=== PATIENT | female | born 1950 | race Caucasian/White ===

== ENCOUNTER 2017-12-16 05:06 | Outpatient (CLI) | payer MEDICARE ==
[~2017-12-16 05:06] MED LIST: CLOP75TA15 PO; EFF25T PO; EZET10TA13 PO; FLAX SEED OIL; INSU100V11 SQ; LANTUS SQ; ROSU10TA PO; SLO NIACIN
== END 2017-12-16 23:59 | disposition home or self-care (01) ==
LOC: DIABETIC 05:06
PROVIDERS: ATTEND Specialist
DX: E11.65 Type 2 diabetes mellitus with hyperglycemia (principal); I10 Essential (primary) hypertension
CPT/HCPCS: G0108

== ENCOUNTER 2018-02-26 02:51 | Emergency (ER) | payer MEDICARE ==
[~2018-02-26] VITALS: Ht 165.1 cm; Wt 89.0 kg
[2018-02-26] MEDS ORDERED: normal saline 1000ML IV soln IVB ONE (03:05)
[2018-02-26] MEDS ORDERED: morphine 4 MG/ML inj SYRINge IV ONE (03:05)
[2018-02-26 03:18] LABS: BASOPHILS % (AUTO) 0.7 % (0-1); EOSINOPHILS # (AUTO) 0.2 X10'3 (0-0.9); EOSINOPHILS % (AUTO) 3.7 % (0-6); HEMATOCRIT 42.4 % (35.0-45.0); HEMOGLOBIN 14.7 g/dl (12.0-16.0); LYMPHOCYTES # (AUTO) 1.6 X10'3 (1.1-4.8); LYMPHOCYTES % (AUTO) 27.2 % (21-51); MEAN CORPUSCULAR HEMOGLOBIN 28.3 PG (27.0-31.0); MEAN CORPUSCULAR HGB CONC 34.7 % (33.0-36.5); MEAN CORPUSCULAR VOLUME 81.6 FL (78-98); MEAN PLATELET VOLUME 7.5 FL (7.4-10.4); MONOCYTES # (AUTO) 0.5 X10'3 (0-0.9); NEUTROPHILS # (AUTO) 3.6 X10'3 (1.8-7.7); NEUTROPHILS % (AUTO) 60.4 % (42-75); PLATELET COUNT 223 X10'3 (140-440); RED CELL DISTRIBUTION WIDTH 14.1 % (11.5-14.5)
[2018-02-26 03:29] LABS: INR 0.9 INR; PARTIAL THROMBOPLASTIN TIME 25 SECONDS (22-32); PROTHROMBIN TIME 9.5 SECONDS (9.0-12.0)
[2018-02-26 03:44] LABS: ALANINE AMINOTRANSFERASE 21 U/L (12-78); ALBUMIN/GLOBULIN RATIO 0.7 (1.1-1.5); ALKALINE PHOSPHATASE 117 IU/L (46-116); ANION GAP 12 (8-16); ASPARTATE AMINO TRANSFERASE 12 U/L (10-37); BILIRUBIN,TOTAL 0.3 MG/DL (0.1-1.0); BLOOD UREA NITROGEN 15 MG/DL (7-18); BUN/CREATININE RATIO 16.5 (6.6-38.0); CALCIUM 9.2 MG/DL (8.5-10.1); CHLORIDE 99 MMOL/L (99-107); CREATININE 0.91 MG/DL (0.40-0.90); MAGNESIUM 1.6 MG/DL (1.5-2.4); POTASSIUM 3.7 MMOL/L (3.5-5.1); SODIUM 138 MMOL/L (135-145); TOTAL CARBON DIOXIDE 27.5 MMOL/L (24-32); TOTAL PROTEIN 7.2 G/DL (6.4-8.2); eGFR 61 ML/MIN
[2018-02-26 03:50] LABS: ETHANOL < 0.010 GM/DL (0.0-0.010)
[2018-02-26 03:51] LABS: GLUCOSE 460 MG/DL (70-104)
[2018-02-26] MEDS ORDERED: insulin regular, human 10 units/0.1 ml syringe SQ ONE (03:55)
[2018-02-26 04:20] VITALS: BP 161/90
[2018-02-26 04:23] LABS: CLARITY,URINE SLIGHTLY CLOUDY (Clear); COLOR,URINE YELLOW (Yellow); GLUCOSE, URINE >=1000 mg/dl (Neg); KETONES,URINE TRACE mg/dl (Neg); LEUKOCYTE ESTERASE ,URINE NEGATIVE (Neg); NITRITES, URINE NEGATIVE (Neg); OCCULT BLOOD,URINE TRACE-INTACT (Neg); PROTEIN,URINE 100 mg/dl (Neg); UROBILINOGEN,URINE 0.2 E.U/dL (0.2-1.0)
[2018-02-26 04:30] LABS: UA COLLECTION TYPE CLN CATCH MIDSTREAM
[2018-02-26 04:34] LABS: BACTERIA,URINE 1+ /HPF (Neg); RBC,URINE 0-2 /HPF (0-2); SQUAMOUS EPITHELIAL CELL,UR FEW /LPF (FEW)
[2018-02-26] MEDS ORDERED: nitrofuran/nitrofuran macrocrysal 100 MG capsule PO ONE (04:45)
[2018-02-26] MEDS ORDERED: NITR100C6 PO (04:46)
== END 2018-02-26 05:59 | disposition home or self-care (01) ==
LOC: ER 02:52
DX: S52.501A Unspecified fracture of the lower end of right radius, initial encounter for closed fracture (principal); S52.601A Unspecified fracture of lower end of right ulna, initial encounter for closed fracture; E11.65 Type 2 diabetes mellitus with hyperglycemia; N30.00 Acute cystitis without hematuria; I10 Essential (primary) hypertension; Z86.73 Personal history of transient ischemic attack (TIA), and cerebral infarction without residual deficits; Z88.1 Allergy status to other antibiotic agents; Z88.0 Allergy status to penicillin; Z91.011 Allergy to milk products; Z79.02 Long term (current) use of antithrombotics/antiplatelets; Z91.09 Other allergy status, other than to drugs and biological substances; Z79.4 Long term (current) use of insulin; Z79.899 Other long term (current) drug therapy; Z56.0 Unemployment, unspecified; W19.XXXA Unspecified fall, initial encounter; Y93.89 Activity, other specified; Y92.090 Kitchen in other non-institutional residence as the place of occurrence of the external cause; Y99.8 Other external cause status
CPT/HCPCS: 29125; 36415; 71045; 73100; 80053; 80320; 81001; 82948; 83735; 84443; 85025; 85610; 85730; 87088; 93005; 96361; 96372; 96374; 99285; J1815; J2270; J7030

== ENCOUNTER 2018-12-31 15:41 | Inpatient (IN) | payer MEDICARE, OTHER ==
[~2018-12-31] VITALS: Ht 170.2 cm; Wt 88.6 kg
[~2018-12-31 15:41] MED LIST changes: +LANTUS SOLOSTAR 100 UNIT/ML; +LISINOPRIL-HCTZ 20-12.5 MG TAB; +METFORMIN HCL ER 500 MG TABLET; +METOPROLOL SUCC ER 25 MG TAB; +NITR100C6 PO; +VENLAFAXINE HCL ER 150 MG CAP
[2018-12-31 16:20] LABS: BASOPHILS % (AUTO) 0.8 % (0-1); EOSINOPHILS # (AUTO) 0.2 X10'3 (0-0.9); EOSINOPHILS % (AUTO) 2.9 % (0-6); HEMATOCRIT 44.8 % (35.0-45.0); HEMOGLOBIN 15.3 g/dl (12.0-16.0); LYMPHOCYTES # (AUTO) 1.1 X10'3 (1.1-4.8); LYMPHOCYTES % (AUTO) 18.8 % (21-51); MEAN CORPUSCULAR HEMOGLOBIN 27.6 PG (27.0-31.0); MEAN CORPUSCULAR HGB CONC 34.2 g/dL (33.0-36.5); MEAN CORPUSCULAR VOLUME 80.7 FL (78-98); MEAN PLATELET VOLUME 7.3 FL (7.4-10.4); MONOCYTES # (AUTO) 0.4 X10'3 (0-0.9); MONOCYTES % (AUTO) 6.7 % (2-12); NEUTROPHILS # (AUTO) 4.2 X10'3 (1.8-7.7); NEUTROPHILS % (AUTO) 70.8 % (42-75); PLATELET COUNT 254 X10'3 (140-440); RED BLOOD COUNT 5.55 X10'6 (4.20-5.60); RED CELL DISTRIBUTION WIDTH 14.3 % (11.5-14.5); WHITE BLOOD COUNT 5.9 X10'3 (4.5-11.0)
[2018-12-31 16:34] LABS: ALANINE AMINOTRANSFERASE 18 U/L (12-78); ALBUMIN 3.4 G/DL (3.4-5.0); ALBUMIN/GLOBULIN RATIO 0.8 (1.1-1.5); ALKALINE PHOSPHATASE 107 IU/L (46-116); ANION GAP 12 (8-16); ASPARTATE AMINO TRANSFERASE 13 U/L (10-37); BILIRUBIN,TOTAL 0.7 MG/DL (0.1-1.0); BLOOD UREA NITROGEN 10 MG/DL (7-18); BUN/CREATININE RATIO 12.2 (6.6-38.0); CALCIUM 9.3 MG/DL (8.5-10.1); CHLORIDE 98 MMOL/L (99-107); CREATININE 0.82 MG/DL (0.40-0.90); GLUCOSE 355 MG/DL (70-104); POTASSIUM 3.3 MMOL/L (3.5-5.1); SODIUM 138 MMOL/L (135-145); TOTAL CARBON DIOXIDE 28.4 MMOL/L (24-32); TOTAL PROTEIN 7.8 G/DL (6.4-8.2); eGFR 69 ML/MIN
[2018-12-31 16:35] LABS: TROPONIN I < 0.04 NG/ML (0.0-0.05)
[2018-12-31 16:47] LABS: ETHANOL < 0.010 GM/DL (0.0-0.010)
[2018-12-31 16:55] LABS: PARTIAL THROMBOPLASTIN TIME 33 SECONDS (22-32); PROTHROMBIN TIME 10.3 SECONDS (9.0-12.0)
[2018-12-31 22:37] LABS: CLARITY,URINE SLIGHTLY CLOUDY (Clear); COLOR,URINE YELLOW (Yellow); GLUCOSE, URINE >=1000 mg/dl (Neg); KETONES,URINE 15 mg/dl (Neg); LEUKOCYTE ESTERASE ,URINE NEGATIVE (Neg); NITRITES, URINE NEGATIVE (Neg); OCCULT BLOOD,URINE MODERATE (Neg); PROTEIN,URINE >=300 mg/dl (Neg); UROBILINOGEN,URINE 0.2 E.U/dL (0.2-1.0)
[2018-12-31 22:38] LABS: UA COLLECTION TYPE STRAIGHT CATH
[2018-12-31 22:43] LABS: HYALINE CASTS 0-3 /LPF (NEGATIVE); SQUAMOUS EPITHELIAL CELL,UR MODERATE /LPF (FEW)
[2018-12-31 22:44] LABS: BACTERIA,URINE 1+ /HPF (Neg); FINE GRANULAR CAST 0-3 /LPF (NEGATIVE); MUCUS STRANDS MODERATE /LPF (Neg); RBC,URINE 0-2 /HPF (0-2)
[2018-12-31 22:45] LABS: URINE AMPHETAMINE SCREEN NEGATIVE (Neg); URINE BARBITUATE SCREEN NEGATIVE (Neg); URINE BENZODIAZEPINES SCREEN NEGATIVE (Neg); URINE CANNABINOID SCREEN NEGATIVE (Neg); URINE COCAINE SCREEN NEGATIVE (Neg); URINE METHADONE SCREEN NEGATIVE (Neg); URINE OPIATE SCREEN NEGATIVE (Neg); URINE PHENCYCLIDINE SCREEN NEGATIVE (Neg)
--- NOTE | 2018-12-31 23:20 | NUR ---
PT WAS GAIT TESTED BY ANOTHER RN - PT USED WALKED AND HAD DIFFICULTY AMBULATING AND WAS LISTING TO THE LEFT. PT SAFELY PLACED BACK IN BED. MD WILL BE NOTIFIED OF FINDINGS.
[2018-12-31] MEDS ORDERED: magnesium hydroxide 30ml (MOM) UD suspension PO PRN (23:55)
[2018-12-31] MEDS ORDERED: morphine 4 MG/ML inj SYRINge IV PRN ×2 (23:55)
[2018-12-31] MEDS ORDERED: HYDROcodone/acetaminophen 5mg/325mg tablet PO PRN (23:55)
[2018-12-31] MEDS ORDERED: acetaminophen 325mg tablet PO PRN (23:55)
[2018-12-31] MEDS ORDERED: mag hydrox/Alum hydrox/simeth 30ml oral suspension PO PRN (23:55)
[2018-12-31] MEDS ORDERED: ondansetron/PF 4mg/2ml inj IV PRN (23:55)
[2019-01-01] MEDS ORDERED: METF500T PO (00:12)
[2019-01-01] MEDS ORDERED: INSU100V9 SQ (00:12)
[2019-01-01] MEDS ORDERED: CLOP75TA15 PO (00:12)
[2019-01-01] MEDS ORDERED: METO-395 PO (00:12)
[2019-01-01] MEDS ORDERED: INSU100C10 SQ (00:12)
[2019-01-01] MEDS ORDERED: LISI1TAB11 PO (00:12)
--- NOTE | 2019-01-01 00:21 | NUR ---
hospitalist at bedside
[2019-01-01] MEDS ORDERED: dextrose ORAL solution 15 GM/59 ML bottle PO PRN ×2 (00:30)
[2019-01-01] MEDS ORDERED: glucagon, human recombinant 1mg kit SUBCUT PRN (00:30)
[2019-01-01] MEDS ORDERED: dextrose 50%-water 50ml dispensing syringe IV PRN ×2 (00:30)
[2019-01-01] MEDS ORDERED: MESSAGE TO PHARMACY PO ONE (00:30)
--- NOTE | 2019-01-01 00:34 | NUR ---
pt moved onto hospital bed. She is given call light. no needs at this time. warm blanket given and lights dimmed.
[2019-01-01 01:24] LABS: HEMOGLOBIN A1C 9.8 % (4.5-6.2)
--- NOTE | 2019-01-01 01:27 | NUR ---
Got pt up to BS commode with walker and then back to bed, she did urinate. Pitcher of water filled atnd at [facility] BS. Call light at BS.
--- NOTE | 2019-01-01 03:06 | NUR ---
PT RESTING AT THIS TIME. CALL LIGHT IN REACH. WILL CONTINUE TO MONITOR.
--- NOTE | 2019-01-01 04:04 | NUR ---
pt weight control engineer light - assisted pt to BSC - she is then placed back on bed but desires to dangle her legs for a bit. pt sitting on edge of bed and has call light in reach to notify RN when she wants help getting placed all the way back in bed.
[2019-01-01] MEDS: clopidogrel 75mg tablet PO SCH (08:49)
[2019-01-01] MEDS: ezetimibe 10mg tablet PO SCH (08:49)
[2019-01-01] MEDS: metoprolol succinate 25mg (24-HOUR) SR. Tablet PO SCH (08:50)
[2019-01-01] MEDS: venlafaxine XR 75mg capsule (Q24H) PO SCH (08:50)
[2019-01-01] MEDS: lisinopril 20mg tablet PO SCH (08:50)
[2019-01-01] MEDS: HYDROchlorothiazide 12.5mg capsule PO SCH (08:50)
[2019-01-01] MEDS: insulin Lispro (HumaLOG) vial - multi-dose SQ SCH ×4 (08:57→21:25)
--- NOTE | 2019-01-01 18:05 | NUR ---
ASSUMED CARE, RECEIVED REPORT FROM [facility] AT BEDSIDE, GIVING REPORT TO ON COMING NURSE KATIE Lawton
[2019-01-01] MEDS ORDERED: potassium Cl 40MEQ/NS 500ml 500 ML IV PRN ×2 (19:50)
[2019-01-01] MEDS ORDERED: magnesium 2GM in 50ml NS 50 ML IV PRN (19:50)
[2019-01-01] MEDS ORDERED: magnesium Cl slow-release 64mg tablet PO PRN (19:50)
[2019-01-01] MEDS ORDERED: potassium Cl 20 mEq SR tablet PO PRN (19:50)
[2019-01-01] MEDS ORDERED: magnesium 4gm in 100ml NS 100 ML IV PRN (19:50)
--- NOTE | 2019-01-01 20:31 | NUR ---
Spoke with Dr. Macario regarding another anticoagulant for stroke protocol. He said that plavix which patient is on should be fine and for tomorrow daytime Hosp. to follow up.
[2019-01-01] MEDS: insulin glargine (Lantus) pen - multi-dose SQ SCH (21:24)
[2019-01-01 22:00] VITALS: BP 164/78
[2019-01-02 02:00] VITALS: BP 147/75
[2019-01-02 06:00] VITALS: BP 169/74
--- NOTE | 2019-01-02 06:10 | NUR ---
Patient in room [facility]TH[facility] 4021. I have received report from Noemy Lawton and had the opportunity to ask questions and assume patient care.
--- NOTE | 2019-01-02 06:18 | NUR ---
Problems reprioritized. Patient report given, questions answered & plan of care reviewed with CASSANDRA Spaulding.
[2019-01-02 06:59] LABS: CHOL/HDL RATIO 6.2 (0.00-4.99); CHOLESTEROL 198 MG/DL (0-200); HDL CHOLESTEROL 32 MG/DL (35-60); LDL CHOLESTEROL 135 MG/DL (50-100); MAGNESIUM 1.5 MG/DL (1.5-2.4); POTASSIUM 3.4 MMOL/L (3.5-5.1); TRIGLYCERIDES 126 MG/DL (20-135)
[2019-01-02 08:00] VITALS: BP_SYST 141; BP_SYST 144; BP_SYST 157; BP_DIAS 80; BP_DIAS 81; BP_DIAS 82
[2019-01-02] MEDS: venlafaxine XR 75mg capsule (Q24H) PO SCH (08:12)
[2019-01-02] MEDS: HYDROchlorothiazide 12.5mg capsule PO SCH (08:13)
[2019-01-02] MEDS: lisinopril 20mg tablet PO SCH (08:14)
[2019-01-02] MEDS: clopidogrel 75mg tablet PO SCH (08:14)
[2019-01-02] MEDS: metoprolol succinate 25mg (24-HOUR) SR. Tablet PO SCH (08:15)
[2019-01-02] MEDS: ezetimibe 10mg tablet PO SCH (08:17)
[2019-01-02] MEDS: insulin Lispro (HumaLOG) vial - multi-dose SQ SCH ×3 (08:52→19:13)
[2019-01-02] MEDS: potassium Cl 20 mEq SR tablet PO PRN ×3 (09:40→17:50)
--- NOTE | 2019-01-02 10:16 | NUR ---
Initial: Pt admit with recurrent falls. Pt with T2DM with A1c 9.8. Pt currently documented as A/O x 1, DM ed not appropriate at this time, will f/u and provide DM ed once pt more alert and oriented. Pt currently on CHO controlled diet with documented PO intake 100% meeting nutrient needs. [facility] 01/01. Will continue to follow. Recommendations: 1) Continue with CHO controlled diet 2) DM ed prior to d/c 3) Wt per rx Addendum: 01/02/19 at [address] Amended: Links added.
--- NOTE | 2019-01-02 15:21 | NUR ---
DM f/u: Pt seen at bedside with friend present. Pt states she checks her BG 3-4 times a day with fluctuating results, patient's friend states pt's BG are all over the place, sometimes in the 390s. Pt states endo reports to her that she's insulin resistant. Pt given written and verbal DM ed with referral to outpatient DM class. Will remain available. Initial: Pt admit with recurrent falls. Pt with T2DM with A1c 9.8. Pt currently documented as A/O x 1, DM ed not appropriate at this time, will f/u and provide DM ed once pt more alert and oriented. Pt currently on CHO controlled diet with documented PO intake 100% meeting nutrient needs. [facility] 01/01. Will continue to follow. Recommendations: 1) Continue with CHO controlled diet 2) DM ed prior to d/c 3) Wt per rx Addendum: 01/02/19 at [address] Amended: Links added.
[2019-01-02 18:00] VITALS: BP 152/83
--- NOTE | 2019-01-02 18:23 | NUR ---
Problems reprioritized. Patient report given, questions answered & plan of care reviewed with Noemy Lawton
--- NOTE | 2019-01-02 18:30 | NUR ---
Patient in room [facility]TH[facility] 4021. I have received report from CASSANDRA Spaulding and had the opportunity to ask questions and assume patient care.
[2019-01-02] MEDS: insulin glargine (Lantus) pen - multi-dose SQ SCH (21:21)
[2019-01-02 22:00] VITALS: BP 136/77
[2019-01-03 06:00] VITALS: BP 151/77
--- NOTE | 2019-01-03 06:09 | NUR ---
Problems reprioritized. Patient report given, questions answered & plan of care reviewed with CASSANDRA Spaulding.
--- NOTE | 2019-01-03 06:10 | NUR ---
Patient in room [facility]TH[facility] 4021. I have received report from Noemy Lawton and had the opportunity to ask questions and assume patient care.
[2019-01-03] MEDS: venlafaxine XR 75mg capsule (Q24H) PO SCH (07:54)
[2019-01-03] MEDS: lisinopril 20mg tablet PO SCH (07:55)
[2019-01-03] MEDS: HYDROchlorothiazide 12.5mg capsule PO SCH (07:55)
[2019-01-03] MEDS: ezetimibe 10mg tablet PO SCH (07:56)
[2019-01-03] MEDS: clopidogrel 75mg tablet PO SCH (07:56)
[2019-01-03] MEDS: metoprolol succinate 25mg (24-HOUR) SR. Tablet PO SCH (07:56)
[2019-01-03 08:00] VITALS: BP_SYST 128; BP_SYST 141; BP_SYST 96; BP_DIAS 55; BP_DIAS 67; BP_DIAS 69
[2019-01-03] MEDS ORDERED: atorvastatin 20mg tablet PO SCH (08:00)
[2019-01-03] MEDS ORDERED: amLODIPine 5mg tablet PO SCH (08:00)
[2019-01-03] MEDS: insulin Lispro (HumaLOG) vial - multi-dose SQ SCH ×2 (09:03→13:32)
[2019-01-03 10:00] VITALS: BP 141/69
[2019-01-03 11:43] LABS: ANION GAP 11 (8-16); BASOPHILS # (AUTO) 0.1 X10'3 (0-0.2); BASOPHILS % (AUTO) 0.7 % (0-1); BLOOD UREA NITROGEN 19 MG/DL (7-18); BUN/CREATININE RATIO 21.8 (6.6-38.0); CHLORIDE 96 MMOL/L (99-107); CREATININE 0.87 MG/DL (0.40-0.90); EOSINOPHILS # (AUTO) 0.2 X10'3 (0-0.9); EOSINOPHILS % (AUTO) 2.2 % (0-6); GLUCOSE 318 MG/DL (70-104); HEMATOCRIT 41.3 % (35.0-45.0); LYMPHOCYTES # (AUTO) 1.4 X10'3 (1.1-4.8); LYMPHOCYTES % (AUTO) 20.2 % (21-51); MEAN CORPUSCULAR HEMOGLOBIN 27.6 PG (27.0-31.0); MEAN CORPUSCULAR HGB CONC 33.8 g/dL (33.0-36.5); MEAN CORPUSCULAR VOLUME 81.4 FL (78-98); MEAN PLATELET VOLUME 7.8 FL (7.4-10.4); MONOCYTES # (AUTO) 0.5 X10'3 (0-0.9); MONOCYTES % (AUTO) 6.5 % (2-12); NEUTROPHILS # (AUTO) 4.9 X10'3 (1.8-7.7); NEUTROPHILS % (AUTO) 70.4 % (42-75); PLATELET COUNT 201 X10'3 (140-440); POTASSIUM 3.1 MMOL/L (3.5-5.1); RED BLOOD COUNT 5.07 X10'6 (4.20-5.60); RED CELL DISTRIBUTION WIDTH 13.9 % (11.5-14.5); SODIUM 134 MMOL/L (135-145); TOTAL CARBON DIOXIDE 26.9 MMOL/L (24-32); WHITE BLOOD COUNT 6.9 X10'3 (4.5-11.0)
[2019-01-03 11:44] LABS: ALBUMIN 2.8 G/DL (3.4-5.0); CALCIUM 8.7 MG/DL (8.5-10.1); eGFR 65 ML/MIN
--- NOTE | 2019-01-03 16:15 | NUR ---
Report called to [facility]. Spoke with Keith, advised of pt's condition, status, admission, meds.
--- NOTE | 2019-01-03 18:11 | NUR ---
Pt was transported via wheelchair by [facility] to [facility].
== END 2019-01-03 18:05 | DRG 66 ==
LOC: ER 15:41 → ED HOLD 23:52 → OBSVTOIN 23:52 → ED HOLD 01-01 00:54 → EDBEDREQ 01-01 16:59 → ORTHO 4S 01-01 18:05
PROVIDERS: ADMIT Internal Medicine; ATTEND Family Medicine
DX: I63.9 Cerebral infarction, unspecified (principal); E10.9 Type 1 diabetes mellitus without complications; E78.5 Hyperlipidemia, unspecified; E87.6 Hypokalemia; I10 Essential (primary) hypertension; W06.XXXA Fall from bed, initial encounter; R29.6 Repeated falls; F32.9 Major depressive disorder, single episode, unspecified; S09.93XA Unspecified injury of face, initial encounter; S00.93XA Contusion of unspecified part of head, initial encounter; Z83.3 Family history of diabetes mellitus; Z90.710 Acquired absence of both cervix and uterus; Z79.899 Other long term (current) drug therapy; Y93.89 Activity, other specified; Y92.89 Other specified places as the place of occurrence of the external cause; Y99.8 Other external cause status; Z88.1 Allergy status to other antibiotic agents; Z91.011 Allergy to milk products; Z88.5 Allergy status to narcotic agent; Z88.0 Allergy status to penicillin; Z88.8 Allergy status to other drugs, medicaments and biological substances; Z91.018 Allergy to other foods; Z79.4 Long term (current) use of insulin
CPT/HCPCS: 36415; 70450; 70486; 70544; 70551; 71045; 72125; 80048; 80053; 80061; 80305; 80320; 81001; 82948; 83036; 83735; 84132; 84484; 85025; 85610; 85730; 87070; 87088; 93005; 93880; 97116; 97162; 97530; 99285; G0378; J1815; J3480